=== PATIENT | female | born 1935 | race Asian ===

== ENCOUNTER 2016-07-16 21:25 | Inpatient (IN) | payer MEDICARE, OTHER ==
[~2016-07-16] VITALS: Ht 147.3 cm; Wt 48.5 kg
[2016-07-16] MEDS ORDERED: DILT90SR PO (21:31)
[2016-07-16] MEDS ORDERED: METF850T2 PO (21:31)
[2016-07-16] MEDS ORDERED: TELM40 PO (21:31)
[2016-07-16] MEDS ORDERED: DILT180C63 PO (21:31)
[2016-07-16 21:32] LABS: GLUCOSE,POINT OF CARE 201 MG/DL (70-110)
[2016-07-16 22:32] LABS: ADD UA MICROSCOPIC YES; APPEARANCE,URINE CLEAR (CLEAR); GLUCOSE, URINE (UA) NEGATIVE (NEGATIVE); KETONES,URINE NEGATIVE (NEGATIVE); LEUKOCYTE ESTERASE ,URINE TRACE (NEGATIVE); OCCULT BLOOD,URINE TRACE (NEGATIVE); PH,URINE 6.5 (5.0-8.0); PROTEIN,URINE NEGATIVE (NEGATIVE)
[2016-07-16 22:35] LABS: SQUAMOUS EPITHELIAL CELL,UR Few /LPF (None Seen)
[2016-07-16 22:52] LABS: ANION GAP 8 mmol/L (8-16); CARBON DIOXIDE 27 mmol/L (22-29); CHLORIDE 100 mmol/L (98-107); CREATININE 0.75 mg/dL (0.60-1.30); GLOMERULAR FILTR. RATE CALC > 60 mL/min (>60); POTASSIUM 4.1 mmol/L (3.5-5.1); PROTHROMBIN TIME 10.2 SEC (9.4-11.6); SODIUM SERUM 135 mmol/L (136-145); UREA NITROGEN, BLOOD 10 mg/dL (7-18)
[2016-07-16 22:57] LABS: BASOPHILS # (AUTO) 0.06 K/uL (0.00-0.20); BASOPHILS % (AUTO) 0.9 % (0.0-2.0); EOSINOPHILS % (AUTO) 1.45 % (1.0-6.0); HEMATOCRIT 37.2 % (36-46); HEMOGLOBIN 11.8 g/dL (12.0-16.0); LYMPHOCYTES # (AUTO) 2.2 K/uL (1.0-4.8); LYMPHOCYTES % (AUTO) 32.1 % (22.0-44.0); MEAN CORPUSCULAR HEMOGLOBIN 21.3 pg (26.0-34.0); MEAN CORPUSCULAR HGB CONC 31.6 G/dL (31.0-37.0); MEAN CORPUSCULAR VOLUME 67 fL (80-100); MONOCYTES # (AUTO) 0.7 K/uL (0.1-1.0); NEUTROPHILS # (AUTO) 3.8 K/uL (1.8-7.7); NEUTROPHILS % (AUTO) 55.5 % (40.0-70.0); PLATELET COUNT (AUTO) 246 K/uL (150-450); RED BLOOD CELL COUNT(AUTO) 5.53 MIL/uL (4.00-5.20); RED CELL DISTRIBUTION WIDTH 15.5 % (11.5-14.5); WHITE BLOOD COUNT (AUTO) 6.8 K/uL (4.5-11.0)
[2016-07-16] MEDS ORDERED: HydrALAZINE HCL 20 MG/ML VIAL IVP ONE (23:15)
[2016-07-16] MEDS ORDERED: ACETAMINOPHEN 325 MG TABLET PO PRN (23:15)
[2016-07-16] MEDS ORDERED: ZOLPIDEM TARTRATE 5 MG TABLET PO PRN (23:15)
[2016-07-16] MEDS ORDERED: OxyCODONE HCL/ACETAMINOPHEN 5-325 MG TABLET PO PRN (23:15)
[2016-07-16 23:16] LABS: RBC MORPHOLOGY COMMENT ABNORMAL RBC MORPH
[2016-07-16 23:17] LABS: ALANINE AMINOTRANSFERASE 19 U/L (12-78); ALBUMIN 3.6 g/dL (3.4-5.0); ASPARTATE AMINOTRANSFERASE 19 U/L (15-37); BILIRUBIN,TOTAL 0.2 mg/dL (0.1-1.0); CREATINE KINASE MB 0.8 ng/mL (0-5); CREATINE KINASE, TOTAL 95 U/L (26-192); TOTAL PROTEIN, SERUM 8.1 g/dL (6.4-8.2)
[2016-07-17] VITALS (8 sets, daily range): BP systolic 117–160; BP diastolic 52–78
[2016-07-17] MEDS ORDERED: HydrALAZINE HCL 20 MG/ML VIAL IVP ONE
[2016-07-17 00:02] LABS: ERYTHROCYTE SEDIMENTATION RATE 25 MM/HR (0-20)
[2016-07-17] MEDS: HEPARIN SODIUM,PORCINE 5,000 UNITS/ML VIAL SQ SCH ×2 (00:50→08:30)
[2016-07-17] MEDS: PANTOPRAZOLE SODIUM 40 MG DR TABLET PO SCH (08:29)
[2016-07-18 04:18] VITALS: BP 157/73
[2016-07-18 07:42] VITALS: BP 167/78
[2016-07-18] MEDS ORDERED: GADOBUTROL 1 MMOL/ML 10 ML VIAL IVP ONE (08:31)
[2016-07-18] MEDS ORDERED: ASPIRIN 81 MG CHEWABLE TABLET PO SCH (09:00)
[2016-07-18 09:58] LABS: HEMOGLOBIN A1C 7.5 % (4.5-6.2)
[2016-07-18] MEDS: PANTOPRAZOLE SODIUM 40 MG DR TABLET PO SCH (10:01)
[2016-07-18 10:14] LABS: CHOL/HDL RATIO 1.7 (3.9-5.7); THYROID STIMULATING HORMONE 1.8 uIU/mL (0.36-3.74)
[2016-07-18 11:11] LABS: VITAMIN B12 LEVEL 708 pg/mL (211-911)
[2016-07-18 11:52] VITALS: BP 185/80
== END 2016-07-18 14:15 | disposition home or self-care (01) | DRG 69 ==
LOC: EMS 21:27 → 5N 23:22
PROVIDERS: ADMIT Hospitalist; ATTEND Hospitalist
DX: G45.9 Transient cerebral ischemic attack, unspecified (principal); R47.81 Slurred speech; I10 Essential (primary) hypertension; E11.9 Type 2 diabetes mellitus without complications; G93.89 Other specified disorders of brain; E78.00 Pure hypercholesterolemia, unspecified; Z79.899 Other long term (current) drug therapy; Z98.890 Other specified postprocedural states; Z86.69 Personal history of other diseases of the nervous system and sense organs
CPT/HCPCS: 51702; 70544; 70553; 82607; 82746; 82962; 83036; 84443; 85651; 93005; 93306; 93880; 96374; 99285; A9585; J0360; J1644

== ENCOUNTER → 2017-01-12 | Outpatient (CLI) | payer MEDICARE, OTHER ==
[~2017-01-12] MED LIST: DILT180C63 PO; GADOBUTROL 1 MMOL/ML 10 ML VIAL IVP ONE; METF850T2 PO; TELM40 PO
[2017-01-12 12:03] LABS: CALCIUM, TOTAL 8.9 mg/dL (8.8-10.5); CREATININE 0.96 mg/dL (0.60-1.30); POTASSIUM 4.6 mmol/L (3.5-5.1)
== END | disposition home or self-care (01) ==
LOC: RADMN 10:00
PROVIDERS: ATTEND Neurological Surgery
DX: D32.0 Benign neoplasm of cerebral meninges (principal); G31.9 Degenerative disease of nervous system, unspecified; R90.82 White matter disease, unspecified; Z98.890 Other specified postprocedural states
CPT/HCPCS: 36415; 70553; 80048; A9585

== ENCOUNTER 2017-04-08 02:55 | Emergency (ER) | payer MEDICARE, OTHER ==
[~2017-04-08] VITALS: Ht 152.4 cm; Wt 53.6 kg
[~2017-04-08 02:55] MED LIST changes: -GADOBUTROL 1 MMOL/ML 10 ML VIAL IVP ONE
[2017-04-08 03:09] LABS: GLUCOSE,POINT OF CARE 108 MG/DL (70-110)
[2017-04-08 03:30] LABS: HEMATOCRIT 34.6 % (36-46); MEAN CORPUSCULAR HEMOGLOBIN 21.3 pg (26.0-34.0); MEAN CORPUSCULAR HGB CONC 31.7 G/dL (31.0-37.0); MEAN CORPUSCULAR VOLUME 67 fL (80-100); PLATELET COUNT (AUTO) 269 K/uL (150-450); RED BLOOD CELL COUNT(AUTO) 5.15 MIL/uL (4.00-5.20); RED CELL DISTRIBUTION WIDTH 15.3 % (11.5-14.5); WHITE BLOOD COUNT (AUTO) 7.7 K/uL (4.5-11.0)
[2017-04-08 03:37] LABS: ANION GAP 8 mmol/L (8-16); CALCIUM, TOTAL 9.3 mg/dL (8.8-10.5); CARBON DIOXIDE 26 mmol/L (22-29); CHLORIDE 100 mmol/L (98-107); CREATININE 0.67 mg/dL (0.60-1.30); GLOMERULAR FILTR. RATE CALC > 60 mL/min (>60); POTASSIUM 4.1 mmol/L (3.5-5.1); SODIUM SERUM 134 mmol/L (136-145); UREA NITROGEN, BLOOD 11 mg/dL (7-18)
[2017-04-08 03:43] LABS: ALANINE AMINOTRANSFERASE 19 U/L (12-78); ALBUMIN 3.7 g/dL (3.4-5.0); ASPARTATE AMINOTRANSFERASE 17 U/L (15-37); BILIRUBIN,TOTAL 0.3 mg/dL (0.1-1.0); TOTAL PROTEIN, SERUM 7.5 g/dL (6.4-8.2)
[2017-04-08 03:45] LABS: BAND NEUTROPHILS % (MANUAL) 4 % (1-5); LYMPHOCYTES % (MANUAL) 37 % (22-44); RBC MORPHOLOGY COMMENT ABNORMAL RBC MORPH; TOTAL CELLS COUNTED 100
[2017-04-08 04:50] LABS: APPEARANCE,URINE CLEAR (CLEAR); GLUCOSE, URINE (UA) NEGATIVE (NEGATIVE); KETONES,URINE NEGATIVE (NEGATIVE); LEUKOCYTE ESTERASE ,URINE NEGATIVE (NEGATIVE); OCCULT BLOOD,URINE NEGATIVE (NEGATIVE); PROTEIN,URINE NEGATIVE (NEGATIVE)
[2017-04-08 04:51] LABS: ADD UA MICROSCOPIC NO
[2017-04-08] MEDS ORDERED: KETOROLAC TROMETHAMINE 30 MG/ML VIAL IVP ONE (05:45)
[2017-04-08] MEDS ORDERED: SODIUM CHLORIDE 0.9% 500 ML IV ONE (05:45)
[2017-04-08 06:39] VITALS: BP 171/71
== END 2017-04-08 06:41 | disposition home or self-care (01) ==
LOC: EMS 02:58
DX: R10.13 Epigastric pain (principal); I10 Essential (primary) hypertension; E78.00 Pure hypercholesterolemia, unspecified; E11.9 Type 2 diabetes mellitus without complications
CPT/HCPCS: 36415; 71020; 74176; 80053; 81003; 82962; 83690; 84484; 85025; 93005; 96361; 96374; 99285; J1885; J7040

== ENCOUNTER → 2017-08-10 | Outpatient (CLI) | payer MEDICARE, OTHER | END | disposition home or self-care (01) | LOC: RADPV 09:47 | PROVIDERS: ATTEND Internal Medicine Nephrology | DX: N13.30 Unspecified hydronephrosis (principal); N18.9 Chronic kidney disease, unspecified | CPT/HCPCS: 76770 ==

== ENCOUNTER → 2017-08-31 | Outpatient (CLI) | payer MEDICARE, OTHER ==
[~2017-08-31] MED LIST changes: +GADOBUTROL 1 MMOL/ML 10 ML VIAL IVP ONE
== END | disposition home or self-care (01) ==
LOC: RADMN 09:33
PROVIDERS: ATTEND Neurological Surgery
DX: I67.82 Cerebral ischemia (principal); G93.40 Encephalopathy, unspecified; D32.9 Benign neoplasm of meninges, unspecified
CPT/HCPCS: 70553; A9585

== ENCOUNTER → 2017-12-06 | Outpatient (CLI) | payer MEDICARE, OTHER ==
[~2017-12-06] MED LIST changes: +ASPI-1182 PO; -GADOBUTROL 1 MMOL/ML 10 ML VIAL IVP ONE; +NACL1 PO; +PANT40TA25 PO
[2017-12-06 13:41] LABS: ANION GAP 10 mmol/L (8-16); CALCIUM, TOTAL 9.5 mg/dL (8.8-10.5); CARBON DIOXIDE 28 mmol/L (22-29); CHLORIDE 100 mmol/L (98-107); CREATININE 0.77 mg/dL (0.60-1.30); GLUCOSE,RANDOM 98 mg/dL (70-110); PHOSPHORUS 4.6 mg/dL (2.5-4.9); POTASSIUM 4.5 mmol/L (3.5-5.1); SODIUM SERUM 138 mmol/L (136-145); UREA NITROGEN, BLOOD 12 mg/dL (7-18)
[2017-12-06 13:42] LABS: GLOMERULAR FILTR. RATE CALC > 60 mL/min (>60)
[2017-12-06 13:44] LABS: OSMOLALITY 294 mOS/kg (270-310)
[2017-12-06 13:49] LABS: CREATININE,URINE RANDOM 65.9 mg/dL (30.0-125.0)
== END | disposition home or self-care (01) ==
LOC: LABPV 10:43
PROVIDERS: ATTEND Internal Medicine Nephrology
DX: I10 Essential (primary) hypertension (principal); E11.9 Type 2 diabetes mellitus without complications; R80.9 Proteinuria, unspecified; D33.2 Benign neoplasm of brain, unspecified
CPT/HCPCS: 82436; 82570; 83735; 83930; 83935; 84133; 84300

== ENCOUNTER 2018-02-09 21:16 | Inpatient (IN) | payer MEDICARE, OTHER ==
[~2018-02-09] VITALS: Ht 152.4 cm; Wt 50.4 kg
[2018-02-09 22:23] LABS: BASOPHILS % (AUTO) 0.5 % (0.0-2.0); EOSINOPHILS % (AUTO) 3.2 % (1.0-6.0); HEMATOCRIT 32.2 % (36-46); LYMPHOCYTES # (AUTO) 1.3 K/uL (1.0-4.8); LYMPHOCYTES % (AUTO) 21.8 % (22.0-44.0); MEAN CORPUSCULAR HEMOGLOBIN 20.7 pg (26.0-34.0); MEAN CORPUSCULAR HGB CONC 31.2 G/dL (31.0-37.0); MEAN CORPUSCULAR VOLUME 67 fL (80-100); MONOCYTES # (AUTO) 0.6 K/uL (0.1-1.0); MONOCYTES % (AUTO) 9.9 % (2.0-9.0); NEUTROPHILS # (AUTO) 3.9 K/uL (1.8-7.7); NEUTROPHILS % (AUTO) 64.6 % (40.0-70.0); PLATELET COUNT (AUTO) 232 K/uL (150-450); RED BLOOD CELL COUNT(AUTO) 4.84 MIL/uL (4.00-5.20); RED CELL DISTRIBUTION WIDTH 15.3 % (11.5-14.5)
[2018-02-09 22:33] LABS: ANION GAP 9 mmol/L (8-16); CALCIUM, TOTAL 8.6 mg/dL (8.8-10.5); CARBON DIOXIDE 26 mmol/L (22-29); CHLORIDE 105 mmol/L (98-107); CREATININE 0.89 mg/dL (0.60-1.30); GLOMERULAR FILTR. RATE CALC > 60 mL/min (>60); GLUCOSE,RANDOM 150 mg/dL (70-110); POTASSIUM 3.5 mmol/L (3.5-5.1); SODIUM SERUM 140 mmol/L (136-145); UREA NITROGEN, BLOOD 13 mg/dL (7-18)
[2018-02-09 22:39] LABS: ALANINE AMINOTRANSFERASE 21 U/L (12-78); ALBUMIN 3.1 g/dL (3.4-5.0); ALKALINE PHOSPHATASE 58 U/L (46-116); ASPARTATE AMINOTRANSFERASE 15 U/L (15-37); BILIRUBIN,TOTAL 0.3 mg/dL (0.1-1.0)
[2018-02-09 22:43] LABS: APPEARANCE,URINE CLEAR (CLEAR); BILIRUBIN,URINE NEGATIVE (NEGATIVE); GLUCOSE, URINE (UA) NEGATIVE (NEGATIVE); KETONES,URINE NEGATIVE (NEGATIVE); LEUKOCYTE ESTERASE ,URINE SMALL (NEGATIVE); NITRATE,URINE NEGATIVE (NEGATIVE); OCCULT BLOOD,URINE NEGATIVE (NEGATIVE); PH,URINE 6.5 (5.0-8.0); PROTEIN,URINE NEGATIVE (NEGATIVE); UROBILINOGEN,URINE 0.2 mg/dL (<=1.0)
[2018-02-09 22:59] LABS: GLUCOSE,POINT OF CARE 156 MG/DL (70-110)
[2018-02-09 22:59] LABS: GLUCOSE,POINT OF CARE 146 MG/DL (70-110)
[2018-02-09 23:09] LABS: BACTERIA,URINE Rare /HPF (None Seen); RBC,URINE None Seen /HPF (0-2); SQUAMOUS EPITHELIAL CELL,UR Rare /LPF (None Seen)
[2018-02-09] MEDS ORDERED: ACETAMINOPHEN 325 MG TABLET PO PRN (23:30)
[2018-02-09] MEDS ORDERED: ONDANSETRON HCL 4 MG/2 ML VIAL IVP PRN (23:30)
[2018-02-09] MEDS ORDERED: 0.9% SODIUM CHLORIDE 10 ML SYRINGE IVP PRN (23:30)
[2018-02-10 01:45] VITALS: BP 139/71
[2018-02-10 05:14] VITALS: BP 138/49
[2018-02-10 06:36] LABS: EOSINOPHILS % (AUTO) 2.5 % (1.0-6.0); HEMATOCRIT 34.8 % (36-46); HEMOGLOBIN 10.9 g/dL (12.0-16.0); LYMPHOCYTES # (AUTO) 1.9 K/uL (1.0-4.8); LYMPHOCYTES % (AUTO) 37.7 % (22.0-44.0); MEAN CORPUSCULAR HEMOGLOBIN 21.1 pg (26.0-34.0); MEAN CORPUSCULAR HGB CONC 31.3 G/dL (31.0-37.0); MEAN CORPUSCULAR VOLUME 67 fL (80-100); MONOCYTES # (AUTO) 0.4 K/uL (0.1-1.0); NEUTROPHILS # (AUTO) 2.5 K/uL (1.8-7.7); NEUTROPHILS % (AUTO) 50.8 % (40.0-70.0); PLATELET COUNT (AUTO) 252 K/uL (150-450); RED BLOOD CELL COUNT(AUTO) 5.17 MIL/uL (4.00-5.20); RED CELL DISTRIBUTION WIDTH 15.2 % (11.5-14.5)
[2018-02-10 07:07] LABS: ALANINE AMINOTRANSFERASE 27 U/L (12-78); ALBUMIN 3.3 g/dL (3.4-5.0); ALKALINE PHOSPHATASE 61 U/L (46-116); ANION GAP 8 mmol/L (8-16); ASPARTATE AMINOTRANSFERASE 16 U/L (15-37); BILIRUBIN,TOTAL 0.3 mg/dL (0.1-1.0); CALCIUM, TOTAL 8.8 mg/dL (8.8-10.5); CARBON DIOXIDE 27 mmol/L (22-29); CHLORIDE 107 mmol/L (98-107); CREATININE 0.74 mg/dL (0.60-1.30); GLOMERULAR FILTR. RATE CALC > 60 mL/min (>60); GLUCOSE,RANDOM 92 mg/dL (70-110); POTASSIUM 3.5 mmol/L (3.5-5.1); SODIUM SERUM 142 mmol/L (136-145); TOTAL PROTEIN, SERUM 7.3 g/dL (6.4-8.2); UREA NITROGEN, BLOOD 10 mg/dL (7-18)
[2018-02-10 07:48] VITALS: BP 138/57
[2018-02-10] MEDS ORDERED: DEXTROSE 50%-WATER 25 GM/50 ML SYRINGE IVP PRN (09:45)
[2018-02-10] MEDS ORDERED: MAGNESIUM HYDROXIDE SUSPENSION 30 ML UDCUP PO PRN (09:45)
[2018-02-10] MEDS ORDERED: INSULIN LISPRO 100 UNITS/ML SQ PRN (09:45)
[2018-02-10] MEDS: ASPIRIN 81 MG CHEWABLE TABLET PO SCH (09:45)
[2018-02-10] MEDS ORDERED: ACETAMINOPHEN 325 MG TABLET PO PRN (09:45)
[2018-02-10 12:01] VITALS: BP 140/62
[2018-02-10 16:28] VITALS: BP 122/67
[2018-02-10] MEDS: HEPARIN SODIUM,PORCINE 5,000 UNITS/ML VIAL SQ SCH ×2 (17:40→23:12)
[2018-02-10 20:04] VITALS: BP 145/65
[2018-02-10] MEDS: DOCUSATE SODIUM 100 MG CAPSULE PO SCH (20:40)
[2018-02-10] MEDS ORDERED: ATORVASTATIN CALCIUM 20 MG TABLET PO SCH (21:00)
[2018-02-10 23:19] LABS: GLUCOMETER DEV NAME(LOC) 5S 1M; GLUCOSE,POINT OF CARE 135 MG/DL (70-110)
[2018-02-10 23:19] LABS: GLUCOMETER DEV NAME(LOC) 5N 1P; GLUCOSE,POINT OF CARE 115 MG/DL (70-110)
[2018-02-11 00:08] VITALS: BP 140/64
[2018-02-11 04:57] VITALS: BP 151/69
[2018-02-11 07:20] VITALS: BP 136/56
[2018-02-11] MEDS: HEPARIN SODIUM,PORCINE 5,000 UNITS/ML VIAL SQ SCH (08:21)
[2018-02-11] MEDS: ASPIRIN 81 MG CHEWABLE TABLET PO SCH (08:21)
[2018-02-11] MEDS: DOCUSATE SODIUM 100 MG CAPSULE PO SCH (08:22)
[2018-02-11] MEDS ORDERED: PANTOPRAZOLE SODIUM 40 MG DR TABLET PO SCH (09:00)
[2018-02-11 11:22] VITALS: BP 136/78
[2018-02-12 14:49] LABS: GLUCOMETER DEV NAME(LOC) 5N 2S; GLUCOSE,POINT OF CARE 131 MG/DL (70-110)
[2018-02-12 14:50] LABS: GLUCOMETER DEV NAME(LOC) 5S 2Q; GLUCOSE,POINT OF CARE 100 MG/DL (70-110)
== END 2018-02-11 11:20 | disposition home or self-care (01) | DRG 312 ==
LOC: EMS 21:17 → 5S 23:30
PROVIDERS: ADMIT Internal Medicine; ATTEND Internal Medicine
DX: R55 Syncope and collapse (principal); E11.9 Type 2 diabetes mellitus without complications; E78.00 Pure hypercholesterolemia, unspecified; G93.89 Other specified disorders of brain; I10 Essential (primary) hypertension; Z86.011 Personal history of benign neoplasm of the brain
CPT/HCPCS: 70450; 70551; 93005; 95816; 97116; 97161; 99291; G0480; J1644

== ENCOUNTER → 2018-02-09 | Outpatient (CLI) | payer MEDICARE, OTHER ==
[~2018-02-09] MED LIST changes: +METF-445 PO; -METF850T2 PO
== END | disposition home or self-care (01) ==
LOC: RADPV 07:38
PROVIDERS: ATTEND Specialist
DX: R94.01 Abnormal electroencephalogram [EEG] (principal); R53.1 Weakness; E78.00 Pure hypercholesterolemia, unspecified; I10 Essential (primary) hypertension; E11.9 Type 2 diabetes mellitus without complications; Z86.73 Personal history of transient ischemic attack (TIA), and cerebral infarction without residual deficits
CPT/HCPCS: 95816

== ENCOUNTER 2018-05-26 11:28 | Inpatient (IN) | payer MEDICARE, OTHER ==
[~2018-05-26] VITALS: Ht 154.4 cm; Wt 48.4 kg
[~2018-05-26 11:28] MED LIST changes: -DILT180C63 PO; -METF-445 PO; -NACL1 PO; -TELM40 PO
[2018-05-26 12:17] LABS: BASOPHILS % (AUTO) 0.2 % (0.0-2.0); EOSINOPHILS % (AUTO) 0 % (1.0-6.0); HEMATOCRIT 38.5 % (36-46); HEMOGLOBIN 12.2 g/dL (12.0-16.0); LYMPHOCYTES # (AUTO) 1.4 K/uL (1.0-4.8); LYMPHOCYTES % (AUTO) 12.8 % (22.0-44.0); MEAN CORPUSCULAR HEMOGLOBIN 20.9 pg (26.0-34.0); MEAN CORPUSCULAR HGB CONC 31.6 G/dL (31.0-37.0); MEAN CORPUSCULAR VOLUME 66 fL (80-100); MONOCYTES # (AUTO) 0.7 K/uL (0.1-1.0); MONOCYTES % (AUTO) 6.8 % (2.0-9.0); NEUTROPHILS # (AUTO) 8.8 K/uL (1.8-7.7); NEUTROPHILS % (AUTO) 80.2 % (40.0-70.0); PLATELET COUNT (AUTO) 241 K/uL (150-450); RED BLOOD CELL COUNT(AUTO) 5.83 MIL/uL (4.00-5.20); RED CELL DISTRIBUTION WIDTH 15.5 % (11.5-14.5)
[2018-05-26 12:30] LABS: PROTHROMBIN TIME 10.4 SEC (9.4-11.6)
[2018-05-26] MEDS ORDERED: LevETIRAcetam 1,500 MG in DEXTROSE 5%-WATER 100 ML IV ONE (12:45)
[2018-05-26 12:48] LABS: SODIUM,URINE RANDOM 88 mmol/l (20-110)
[2018-05-26 12:49] LABS: ALANINE AMINOTRANSFERASE 38 U/L (12-78); ALBUMIN 3.8 g/dL (3.4-5.0); ALKALINE PHOSPHATASE 77 U/L (46-116); ANION GAP 10 mmol/L (8-16); ASPARTATE AMINOTRANSFERASE 60 U/L (15-37); BILIRUBIN,TOTAL 0.8 mg/dL (0.1-1.0); CALCIUM, TOTAL 8.6 mg/dL (8.8-10.5); CARBON DIOXIDE 25 mmol/L (22-29); CHLORIDE 84 mmol/L (98-107); GLUCOSE,RANDOM 178 mg/dL (70-110); UREA NITROGEN, BLOOD 6 mg/dL (7-18)
[2018-05-26 12:51] LABS: GLOMERULAR FILTR. RATE CALC > 60 mL/min (>60); SODIUM SERUM 119 mmol/L (136-145)
[2018-05-26 12:54] LABS: AMPHET/METH SCREEN,URINE NEGATIVE (NEGATIVE); BARBITURATE SCREEN, URINE NEGATIVE (NEGATIVE); BENZODIAZEPINES SCREEN,URINE NEGATIVE (NEGATIVE); COCAINE SCREEN,URINE NEGATIVE (NEGATIVE); METHADONE SCREEN, URINE NEGATIVE (NEGATIVE); OPIATE SCREEN,URINE NEGATIVE (NEGATIVE)
[2018-05-26 12:54] LABS: TROPONIN I < 0.02 ng/mL (0.00-0.05)
[2018-05-26] MEDS ORDERED: ONDANSETRON HCL 4 MG/2 ML VIAL IVP PRN ×2 (13:00→16:30)
[2018-05-26] MEDS ORDERED: 0.9% SODIUM CHLORIDE 10 ML SYRINGE IVP PRN (13:00)
[2018-05-26] MEDS ORDERED: SODIUM CHLORIDE 0.9% 1,000 ML IV ONE (13:00)
[2018-05-26 13:05] LABS: APPEARANCE,URINE CLEAR (CLEAR); BILIRUBIN,URINE NEGATIVE (NEGATIVE); CANNABINOID SCREEN,URINE NEGATIVE (NEGATIVE); GLUCOSE, URINE (UA) 100 mg/dL (NEGATIVE); KETONES,URINE 15 mg/dL (NEGATIVE); LEUKOCYTE ESTERASE ,URINE NEGATIVE (NEGATIVE); NITRATE,URINE NEGATIVE (NEGATIVE); OCCULT BLOOD,URINE LARGE (NEGATIVE); PH,URINE 7.5 (5.0-8.0); PHENCYCLIDINE SCREEN,URINE NEGATIVE (NEGATIVE); PROTEIN,URINE POS 1+ (NEGATIVE); UROBILINOGEN,URINE 0.2 mg/dL (<=1.0)
[2018-05-26 13:09] LABS: OSMOLALITY,URINE 410 mOS/kg (50-1200)
[2018-05-26 13:11] LABS: AMMONIA 17 umol/L (11-32)
[2018-05-26 13:16] LABS: BACTERIA,URINE Rare /HPF (None Seen); SQUAMOUS EPITHELIAL CELL,UR Rare /LPF (None Seen); WBC,URINE 0-2 /HPF (0-5)
[2018-05-26] MEDS ORDERED: ACETAMINOPHEN 500 MG TABLET PO ONE (15:45)
[2018-05-26] MEDS ORDERED: ALBUTEROL SULFATE 2.5 MG/0.5 ML NEB SOLUTION NEB PRN (16:30)
[2018-05-26] MEDS ORDERED: ZOLPIDEM TARTRATE 5 MG TABLET PO PRN (16:30)
[2018-05-26] MEDS ORDERED: IPRATROPIUM BROMIDE 0.5 MG/2.5 ML NEB SOLUTION NEB PRN (16:30)
[2018-05-26] MEDS ORDERED: MAGNESIUM HYDROXIDE SUSPENSION 30 ML UDCUP PO PRN (16:30)
[2018-05-26] MEDS ORDERED: ACETAMINOPHEN 325 MG TABLET PO PRN (16:30)
[2018-05-26] MEDS ORDERED: BISACODYL 10 MG RECTAL RECTAL SUPPOSITORY PR PRN (16:30)
[2018-05-26] MEDS ORDERED: DEXTROSE 50%-WATER 25 GM/50 ML SYRINGE IVP PRN ×2 (16:30)
[2018-05-26] MEDS ORDERED: HYDROCODONE/ACETAMINOPHEN 5-325 MG TABLET PO PRN (16:30)
[2018-05-26] MEDS ORDERED: MORPHINE SULFATE 4 MG/ML SYRINGE IVP PRN (16:30)
[2018-05-26 16:47] VITALS: BP 126/64
[2018-05-26] MEDS: SODIUM CHLORIDE 0.9% 1,000 ML IV SCH (17:11)
[2018-05-26 18:19] LABS: ANION GAP 8 mmol/L (8-16); CALCIUM, TOTAL 8.1 mg/dL (8.8-10.5); CARBON DIOXIDE 24 mmol/L (22-29); CHLORIDE 92 mmol/L (98-107); CREATININE 0.52 mg/dL (0.60-1.30); GLUCOSE,RANDOM 140 mg/dL (70-110); POTASSIUM 3.5 mmol/L (3.5-5.1); UREA NITROGEN, BLOOD 5 mg/dL (7-18)
[2018-05-26 18:20] LABS: GLOMERULAR FILTR. RATE CALC > 60 mL/min (>60); SODIUM SERUM 124 mmol/L (136-145)
[2018-05-26 20:00] VITALS: BP 125/67
[2018-05-26] MEDS: DOCUSATE SODIUM 100 MG CAPSULE PO SCH (21:00)
[2018-05-26 22:34] LABS: GLUCOMETER DEV NAME(LOC) 5N.1; GLUCOSE,POINT OF CARE 134 MG/DL (70-110)
[2018-05-26 23:21] VITALS: BP 129/65
[2018-05-27] MEDS: LevETIRAcetam 500 MG in DEXTROSE 5%-WATER 100 ML IV SCH ×2 (00:53→12:39)
[2018-05-27 03:53] VITALS: BP 145/71
[2018-05-27 04:49] LABS: GLUCOMETER DEV NAME(LOC) 5S.2; GLUCOSE,POINT OF CARE 131 MG/DL (70-110)
[2018-05-27 07:06] VITALS: BP_SYST 126; BP_SYST 151; BP_SYST 62; BP_DIAS 69; BP_DIAS 82
[2018-05-27] MEDS: PANTOPRAZOLE SODIUM 40 MG/VIAL IVP SCH (08:53)
[2018-05-27] MEDS: ASPIRIN 81 MG EC TABLET PO SCH (08:54)
[2018-05-27] MEDS: DOCUSATE SODIUM 100 MG CAPSULE PO SCH ×2 (08:54→20:23)
[2018-05-27] MEDS: HEPARIN SODIUM,PORCINE 5,000 UNITS/ML VIAL SQ SCH ×3 (08:54→15:44)
[2018-05-27] MEDS: SODIUM CHLORIDE 0.9% 1,000 ML IV SCH (08:56)
[2018-05-27] MEDS ORDERED: PANTOPRAZOLE SODIUM 40 MG DR TABLET PO SCH (09:00)
[2018-05-27 11:13] VITALS: BP 162/97
[2018-05-27 15:48] VITALS: BP 126/98
[2018-05-27 15:50] LABS: BASOPHILS % (AUTO) 1.1 % (0.0-2.0); EOSINOPHILS % (AUTO) 0.7 % (1.0-6.0); HEMATOCRIT 35.5 % (36-46); HEMOGLOBIN 11.3 g/dL (12.0-16.0); LYMPHOCYTES # (AUTO) 1.3 K/uL (1.0-4.8); MEAN CORPUSCULAR HEMOGLOBIN 21.1 pg (26.0-34.0); MEAN CORPUSCULAR HGB CONC 31.8 G/dL (31.0-37.0); MEAN CORPUSCULAR VOLUME 66 fL (80-100); MONOCYTES # (AUTO) 0.8 K/uL (0.1-1.0); MONOCYTES % (AUTO) 10.7 % (2.0-9.0); NEUTROPHILS % (AUTO) 69.5 % (40.0-70.0); PLATELET COUNT (AUTO) 220 K/uL (150-450); RED BLOOD CELL COUNT(AUTO) 5.36 MIL/uL (4.00-5.20); RED CELL DISTRIBUTION WIDTH 15.8 % (11.5-14.5)
[2018-05-27 16:04] LABS: ALANINE AMINOTRANSFERASE 58 U/L (12-78); ALBUMIN 3.1 g/dL (3.4-5.0); ALKALINE PHOSPHATASE 63 U/L (46-116); ANION GAP 9 mmol/L (8-16); ASPARTATE AMINOTRANSFERASE 107 U/L (15-37); BILIRUBIN,TOTAL 0.4 mg/dL (0.1-1.0); CALCIUM, TOTAL 8.3 mg/dL (8.8-10.5); CARBON DIOXIDE 26 mmol/L (22-29); CHLORIDE 102 mmol/L (98-107); GLUCOSE,RANDOM 163 mg/dL (70-110); SODIUM SERUM 137 mmol/L (136-145); TOTAL PROTEIN, SERUM 6.8 g/dL (6.4-8.2); UREA NITROGEN, BLOOD 8 mg/dL (7-18)
[2018-05-27 16:07] LABS: GLOMERULAR FILTR. RATE CALC > 60 mL/min (>60)
[2018-05-27 16:08] LABS: POTASSIUM 2.8 mmol/L (3.5-5.1)
[2018-05-27] MEDS ORDERED: POTASSIUM CHLORIDE 20 MEQ ER TABLET PO ONE ×2 (16:15→20:30)
[2018-05-27] MEDS: INSULIN LISPRO 100 UNITS/ML SQ PRN ×2 (18:16→20:42)
[2018-05-27 20:14] VITALS: BP 137/90
[2018-05-27 20:15] LABS: GLUCOMETER DEV NAME(LOC) 5N.1; GLUCOSE,POINT OF CARE 108 MG/DL (70-110)
[2018-05-27] MEDS ORDERED: LevETIRAcetam 500 MG TABLET PO SCH (21:00)
[2018-05-27 22:58] LABS: GLUCOMETER DEV NAME(LOC) 5S.2; GLUCOSE,POINT OF CARE 120 MG/DL (70-110)
[2018-05-27 22:58] LABS: GLUCOMETER DEV NAME(LOC) 5S.2; GLUCOSE,POINT OF CARE 188 MG/DL (70-110)
[2018-05-27 23:15] VITALS: BP 141/73
[2018-05-28] VITALS (8 sets, daily range): BP systolic 130–159; BP diastolic 65–87
[2018-05-28] MEDS: HEPARIN SODIUM,PORCINE 5,000 UNITS/ML VIAL SQ SCH ×4 (00:44→23:22)
[2018-05-28] MEDS: SODIUM CHLORIDE 0.9% 1,000 ML IV SCH ×3 (00:45→22:11)
[2018-05-28 02:54] LABS: GLUCOMETER DEV NAME(LOC) 5N.1; GLUCOSE,POINT OF CARE 165 MG/DL (70-110)
[2018-05-28] MEDS: INSULIN LISPRO 100 UNITS/ML SQ PRN ×2 (06:04→22:46)
[2018-05-28 06:43] LABS: BASOPHILS % (AUTO) 0.8 % (0.0-2.0); EOSINOPHILS % (AUTO) 0.8 % (1.0-6.0); HEMATOCRIT 36.2 % (36-46); HEMOGLOBIN 11.5 g/dL (12.0-16.0); LYMPHOCYTES # (AUTO) 2.8 K/uL (1.0-4.8); LYMPHOCYTES % (AUTO) 29.4 % (22.0-44.0); MEAN CORPUSCULAR HEMOGLOBIN 21.2 pg (26.0-34.0); MEAN CORPUSCULAR HGB CONC 31.8 G/dL (31.0-37.0); MEAN CORPUSCULAR VOLUME 67 fL (80-100); MONOCYTES # (AUTO) 0.5 K/uL (0.1-1.0); MONOCYTES % (AUTO) 5.5 % (2.0-9.0); NEUTROPHILS % (AUTO) 63.5 % (40.0-70.0); PLATELET COUNT (AUTO) 225 K/uL (150-450); RED BLOOD CELL COUNT(AUTO) 5.44 MIL/uL (4.00-5.20); RED CELL DISTRIBUTION WIDTH 15.8 % (11.5-14.5)
[2018-05-28 06:55] LABS: GLUCOMETER DEV NAME(LOC) 5N.1; GLUCOSE,POINT OF CARE 154 MG/DL (70-110)
[2018-05-28 06:57] LABS: ALANINE AMINOTRANSFERASE 67 U/L (12-78); ALBUMIN 3.2 g/dL (3.4-5.0); ALKALINE PHOSPHATASE 63 U/L (46-116); ANION GAP 10 mmol/L (8-16); ASPARTATE AMINOTRANSFERASE 111 U/L (15-37); BILIRUBIN,TOTAL 0.3 mg/dL (0.1-1.0); CALCIUM, TOTAL 8.3 mg/dL (8.8-10.5); CARBON DIOXIDE 25 mmol/L (22-29); CHLORIDE 101 mmol/L (98-107); CREATININE 0.46 mg/dL (0.60-1.30); GLUCOSE,RANDOM 139 mg/dL (70-110); SODIUM SERUM 136 mmol/L (136-145); UREA NITROGEN, BLOOD 11 mg/dL (7-18)
[2018-05-28 07:08] LABS: GLOMERULAR FILTR. RATE CALC > 60 mL/min (>60)
[2018-05-28] MEDS: DOCUSATE SODIUM 100 MG CAPSULE PO SCH ×2 (09:00→21:00)
[2018-05-28] MEDS: ASPIRIN 81 MG EC TABLET PO SCH (09:00)
[2018-05-28] MEDS ORDERED: LevETIRAcetam 500 MG TABLET PO SCH (10:00)
[2018-05-28 12:40] LABS: GLUCOMETER DEV NAME(LOC) 5N.2; GLUCOSE,POINT OF CARE 126 MG/DL (70-110)
[2018-05-28] MEDS: LevETIRAcetam 1,000 MG in DEXTROSE 5%-WATER 100 ML IV SCH ×2 (12:52→21:08)
[2018-05-28] MEDS: PANTOPRAZOLE SODIUM 40 MG/VIAL IVP SCH (12:54)
[2018-05-28] MEDS ORDERED: LORazepam 2 MG/ML VIAL IVP PRN (14:45)
[2018-05-28] MEDS ORDERED: PHENYTOIN SODIUM 1,000 MG in SODIUM CHLORIDE 0.9% 150 ML IV ONE (16:15)
[2018-05-28] MEDS: PHENYTOIN SODIUM 100 MG in SODIUM CHLORIDE 0.9% 100 ML IV SCH (21:08)
[2018-05-29] VITALS: BP 103/56
[2018-05-29 04:00] VITALS: BP 124/61
[2018-05-29 05:03] LABS: ALANINE AMINOTRANSFERASE 58 U/L (12-78); ALBUMIN 2.8 g/dL (3.4-5.0); ALKALINE PHOSPHATASE 56 U/L (46-116); ANION GAP 6 mmol/L (8-16); ASPARTATE AMINOTRANSFERASE 85 U/L (15-37); BILIRUBIN,TOTAL 0.4 mg/dL (0.1-1.0); CALCIUM, TOTAL 8.3 mg/dL (8.8-10.5); CARBON DIOXIDE 29 mmol/L (22-29); CHLORIDE 101 mmol/L (98-107); CREATININE 0.52 mg/dL (0.60-1.30); GLUCOSE,RANDOM 105 mg/dL (70-110); POTASSIUM 3.3 mmol/L (3.5-5.1); SODIUM SERUM 136 mmol/L (136-145); TOTAL PROTEIN, SERUM 6.3 g/dL (6.4-8.2); UREA NITROGEN, BLOOD 6 mg/dL (7-18)
[2018-05-29 05:11] LABS: GLOMERULAR FILTR. RATE CALC > 60 mL/min (>60)
[2018-05-29 08:00] VITALS: BP 125/61
[2018-05-29] MEDS: DOCUSATE SODIUM 100 MG CAPSULE PO SCH ×2 (09:00→21:00)
[2018-05-29] MEDS: ASPIRIN 81 MG EC TABLET PO SCH (09:00)
[2018-05-29] MEDS: HEPARIN SODIUM,PORCINE 5,000 UNITS/ML VIAL SQ SCH ×2 (09:06→16:07)
[2018-05-29] MEDS: PANTOPRAZOLE SODIUM 40 MG/VIAL IVP SCH (09:09)
[2018-05-29] MEDS: PHENYTOIN SODIUM 100 MG in SODIUM CHLORIDE 0.9% 100 ML IV SCH ×3 (09:51→21:58)
[2018-05-29] MEDS: LevETIRAcetam 1,000 MG in DEXTROSE 5%-WATER 100 ML IV SCH ×2 (09:52→21:58)
[2018-05-29 12:00] VITALS: BP 152/72
[2018-05-29] MEDS: SODIUM CHLORIDE 0.9% 1,000 ML IV SCH (12:08)
[2018-05-29] MEDS: INSULIN LISPRO 100 UNITS/ML SQ PRN ×2 (12:44→22:09)
[2018-05-29 13:59] LABS: GLUCOMETER DEV NAME(LOC) 5N.1; GLUCOSE,POINT OF CARE 143 MG/DL (70-110)
[2018-05-29 14:00] LABS: GLUCOSE,POINT OF CARE 118 MG/DL (70-110)
[2018-05-29 14:00] LABS: GLUCOSE,POINT OF CARE 181 MG/DL (70-110)
[2018-05-29 14:06] LABS: GLUCOSE,POINT OF CARE 142 MG/DL (70-110)
[2018-05-29 16:00] VITALS: BP 146/70
[2018-05-29 20:00] VITALS: BP 144/54
[2018-05-30] VITALS: BP 151/79
[2018-05-30] MEDS: HEPARIN SODIUM,PORCINE 5,000 UNITS/ML VIAL SQ SCH ×3 (00:40→15:40)
[2018-05-30] MEDS: SODIUM CHLORIDE 0.9% 1,000 ML IV SCH ×2 (00:40→15:40)
[2018-05-30 04:00] VITALS: BP 155/54
[2018-05-30 06:49] LABS: ALANINE AMINOTRANSFERASE 63 U/L (12-78); ALBUMIN 2.9 g/dL (3.4-5.0); ALKALINE PHOSPHATASE 65 U/L (46-116); ANION GAP 14 mmol/L (8-16); ASPARTATE AMINOTRANSFERASE 74 U/L (15-37); BILIRUBIN,TOTAL 0.5 mg/dL (0.1-1.0); CALCIUM, TOTAL 8.2 mg/dL (8.8-10.5); CARBON DIOXIDE 23 mmol/L (22-29); CHLORIDE 95 mmol/L (98-107); CREATININE 0.47 mg/dL (0.60-1.30); GLUCOSE,RANDOM 132 mg/dL (70-110); SODIUM SERUM 132 mmol/L (136-145); TOTAL PROTEIN, SERUM 6.9 g/dL (6.4-8.2); UREA NITROGEN, BLOOD 4 mg/dL (7-18)
[2018-05-30 06:57] LABS: GLOMERULAR FILTR. RATE CALC > 60 mL/min (>60); POTASSIUM 2.6 mmol/L (3.5-5.1)
[2018-05-30 08:00] VITALS: BP 120/75
[2018-05-30] MEDS: PANTOPRAZOLE SODIUM 40 MG/VIAL IVP SCH (08:29)
[2018-05-30] MEDS: POTASSIUM CHL 10 MEQ/WATER 50 ML IV PRN ×4 (08:30→12:54)
[2018-05-30] MEDS ORDERED: SODIUM CHLORIDE 0.9% 250 ML IV ONE (08:35)
[2018-05-30] MEDS: LevETIRAcetam 1,000 MG in DEXTROSE 5%-WATER 100 ML IV SCH ×2 (08:37→20:40)
[2018-05-30 08:51] LABS: GLUCOSE,POINT OF CARE 146 MG/DL (70-110)
[2018-05-30 08:51] LABS: GLUCOSE,POINT OF CARE 133 MG/DL (70-110)
[2018-05-30] MEDS: DOCUSATE SODIUM 100 MG CAPSULE PO SCH ×2 (08:53→21:00)
[2018-05-30] MEDS: ASPIRIN 81 MG EC TABLET PO SCH (08:54)
[2018-05-30 08:57] LABS: GLUCOSE,POINT OF CARE 126 MG/DL (70-110)
[2018-05-30] MEDS: PHENYTOIN SODIUM 100 MG in SODIUM CHLORIDE 0.9% 100 ML IV SCH ×3 (09:17→20:40)
[2018-05-30 12:00] VITALS: BP 148/68
[2018-05-30 12:44] LABS: GLUCOSE,POINT OF CARE 121 MG/DL (70-110)
[2018-05-30 16:00] VITALS: BP 145/85
[2018-05-30] MEDS: POTASSIUM CHLORIDE 20 MEQ ER TABLET PO PRN (16:45)
[2018-05-30] MEDS: INSULIN LISPRO 100 UNITS/ML SQ PRN (17:19)
[2018-05-30 18:34] LABS: GLUCOSE,POINT OF CARE 191 MG/DL (70-110)
[2018-05-30 20:00] VITALS: BP 126/47
[2018-05-31] MEDS: HEPARIN SODIUM,PORCINE 5,000 UNITS/ML VIAL SQ SCH ×4 (00:05→22:51)
[2018-05-31] MEDS: INSULIN LISPRO 100 UNITS/ML SQ PRN ×5 (01:30→20:07)
[2018-05-31] MEDS ORDERED: SODIUM CHLORIDE 0.9% 250 ML IV ONE (02:09)
[2018-05-31 02:35] VITALS: BP 147/76
[2018-05-31] MEDS: POTASSIUM CHL 10 MEQ/WATER 50 ML IV PRN ×3 (03:39→06:57)
[2018-05-31] MEDS: SODIUM CHLORIDE 0.9% 1,000 ML IV SCH ×3 (03:40→22:52)
[2018-05-31 04:47] VITALS: BP 114/68
[2018-05-31 06:59] LABS: GLUCOSE,POINT OF CARE 172 MG/DL (70-110)
[2018-05-31 07:51] VITALS: BP 136/74
[2018-05-31] MEDS: DOCUSATE SODIUM 100 MG CAPSULE PO SCH ×2 (08:58→20:07)
[2018-05-31] MEDS: ASPIRIN 81 MG EC TABLET PO SCH (08:58)
[2018-05-31] MEDS: PANTOPRAZOLE SODIUM 40 MG/VIAL IVP SCH (08:58)
[2018-05-31] MEDS: PHENYTOIN SODIUM 100 MG in SODIUM CHLORIDE 0.9% 100 ML IV SCH ×3 (09:10→20:50)
[2018-05-31 10:44] LABS: GLUCOMETER DEV NAME(LOC) 5N.2; GLUCOSE,POINT OF CARE 144 MG/DL (70-110)
[2018-05-31] MEDS: LevETIRAcetam 1,000 MG in DEXTROSE 5%-WATER 100 ML IV SCH ×2 (10:50→22:15)
[2018-05-31 11:20] VITALS: BP 130/70
[2018-05-31 12:35] LABS: GLUCOMETER DEV NAME(LOC) 5N.2; GLUCOSE,POINT OF CARE 322 MG/DL (70-110)
[2018-05-31 15:59] VITALS: BP 148/81
[2018-05-31 20:31] VITALS: BP 155/73
[2018-06-01 00:43] VITALS: BP 144/64
[2018-06-01 04:50] VITALS: BP 159/65
[2018-06-01 06:30] LABS: ALANINE AMINOTRANSFERASE 53 U/L (12-78); ALBUMIN 2.3 g/dL (3.4-5.0); ALKALINE PHOSPHATASE 65 U/L (46-116); ANION GAP 8 mmol/L (8-16); ASPARTATE AMINOTRANSFERASE 30 U/L (15-37); BILIRUBIN,TOTAL 0.2 mg/dL (0.1-1.0); CALCIUM, TOTAL 8.3 mg/dL (8.8-10.5); CARBON DIOXIDE 27 mmol/L (22-29); CHLORIDE 104 mmol/L (98-107); CREATININE 0.42 mg/dL (0.60-1.30); GLUCOSE,RANDOM 141 mg/dL (70-110); POTASSIUM 3.4 mmol/L (3.5-5.1); SODIUM SERUM 139 mmol/L (136-145); TOTAL PROTEIN, SERUM 6.1 g/dL (6.4-8.2); UREA NITROGEN, BLOOD 7 mg/dL (7-18)
[2018-06-01 06:32] LABS: GLOMERULAR FILTR. RATE CALC > 60 mL/min (>60)
[2018-06-01] MEDS: POTASSIUM CHLORIDE 20 MEQ ER TABLET PO PRN (06:43)
[2018-06-01] MEDS: ASPIRIN 81 MG EC TABLET PO SCH (08:27)
[2018-06-01] MEDS: PHENYTOIN SODIUM 100 MG in SODIUM CHLORIDE 0.9% 100 ML IV SCH (08:27)
[2018-06-01] MEDS: PANTOPRAZOLE SODIUM 40 MG/VIAL IVP SCH (08:27)
[2018-06-01] MEDS: DOCUSATE SODIUM 100 MG CAPSULE PO SCH (08:27)
[2018-06-01] MEDS: HEPARIN SODIUM,PORCINE 5,000 UNITS/ML VIAL SQ SCH (08:28)
[2018-06-01 08:59] VITALS: BP 134/73
[2018-06-01] MEDS: LevETIRAcetam 1,000 MG in DEXTROSE 5%-WATER 100 ML IV SCH (10:01)
[2018-06-01 10:48] LABS: GLUCOMETER DEV NAME(LOC) 5N.2; GLUCOSE,POINT OF CARE 140 MG/DL (70-110)
[2018-06-01 10:51] LABS: GLUCOMETER DEV NAME(LOC) 5N.2; GLUCOSE,POINT OF CARE 197 MG/DL (70-110)
[2018-06-01 10:51] LABS: GLUCOMETER DEV NAME(LOC) 5N.2; GLUCOSE,POINT OF CARE 181 MG/DL (70-110)
[2018-06-01] MEDS ORDERED: DSS100 PO (11:27)
[2018-06-01] MEDS ORDERED: HEPA500018 SQ (11:28)
[2018-06-01] MEDS ORDERED: LEVE500T53 PO (11:28)
[2018-06-01] MEDS ORDERED: PHENY100 PO (11:29)
[2018-06-01 11:59] VITALS: BP 119/92
[2018-06-01 17:39] LABS: GLUCOMETER DEV NAME(LOC) 5N.1; GLUCOSE,POINT OF CARE 260 MG/DL (70-110)
== END 2018-06-01 11:50 | DRG 101 ==
LOC: EMS 11:29 → 5N 14:54 → ICU 05-28 20:20 → 5N 05-31 02:15
PROVIDERS: ADMIT Hospitalist; ATTEND Hospitalist
PROC: 4A00X4Z Measurement of Central Nervous Electrical Activity, External Approach (ICD-10-PCS; 2018-05-28)
PROC: 05HY33Z Insertion of Infusion Device into Upper Vein, Percutaneous Approach (ICD-10-PCS; principal; 2018-05-30)
PROC: B54NZZA Ultrasonography of Left Upper Extremity Veins, Guidance (ICD-10-PCS; 2018-05-30)
DX: G40.909 Epilepsy, unspecified, not intractable, without status epilepticus (principal); E87.1 Hypo-osmolality and hyponatremia; R65.10 Systemic inflammatory response syndrome (SIRS) of non-infectious origin without acute organ dysfunction; E78.00 Pure hypercholesterolemia, unspecified; I44.30 Unspecified atrioventricular block; E11.9 Type 2 diabetes mellitus without complications; I10 Essential (primary) hypertension; Z86.011 Personal history of benign neoplasm of the brain; Z79.82 Long term (current) use of aspirin; Z79.899 Other long term (current) drug therapy
CPT/HCPCS: 36245; 36569; 51702; 70496; 76937; 83930; 83935; 84132; 84300; 86850; 86900; 86901; 87040; 87081; 92610; 93005; 95816; 96374; 97162; 97166; 97530; 97535; 99291; 99292; C9113; G0378; J0712; J1165; J1644; J2060; J3480; J7030; J7050; J7060

== ENCOUNTER → 2018-07-09 | Outpatient (CLI) | payer MEDICARE, OTHER ==
[~2018-07-09] MED LIST changes: +AMLO-511 PO; +DOCU250C91 PO; +LEVE500T53 PO; +MULT-723 PO; +PHEN100C9 PO
== END | disposition home or self-care (01) ==
LOC: CARDPV 09:18
PROVIDERS: ATTEND Specialist
DX: R56.9 Unspecified convulsions (principal); R94.01 Abnormal electroencephalogram [EEG]
CPT/HCPCS: 95816

== ENCOUNTER → 2018-07-16 | Outpatient (CLI) | payer MEDICARE, OTHER | END | disposition home or self-care (01) | LOC: LABPV 13:54 | PROVIDERS: ATTEND Specialist | DX: R56.9 Unspecified convulsions (principal) | CPT/HCPCS: 36415; 80185; G0482 ==